=== PATIENT | female | born 1990 | race African-American/Black ===

== ENCOUNTER 2017-01-25 11:17 | Emergency (ER) | payer BC, MEDICAID ==
[~2017-01-25] VITALS: Ht 162.6 cm; Wt 65.8 kg
[~2017-01-25 11:17] MED LIST: ABILIFY
[2017-01-25 11:38] VITALS: BP 114/76
[2017-01-25 12:13] LABS: Urine Bilirubin Negative (Negative); Urine Blood Negative /uL (Negative); Urine Color Yellow (Yellow); Urine Glucose Normal (Normal); Urine Ketone Negative (Negative); Urine Mucus FEW (None Seen); Urine Nitrite Negative (Negative); Urine RBC <1 /hpf (0 - 4); Urine Squamous Epithelial Cell MOD /hpf (<5); Urine pH 5.5 (5.0-8.0)
== END 2017-01-25 13:29 | disposition home or self-care (01) ==
LOC: ER 11:17
DX: Z32.02 Encounter for pregnancy test, result negative (principal); Z88.8 Allergy status to other drugs, medicaments and biological substances; J45.909 Unspecified asthma, uncomplicated
CPT/HCPCS: 36415; 81001; 84702

== ENCOUNTER 2017-02-24 16:13 | Observation (INO) | payer MEDICAID ==
[~2017-02-24] VITALS: Ht 162.6 cm; Wt 63.5 kg
[2017-02-24 17:06] LABS: Basophils # (auto) 0.1 uL; Basophils % (auto) 1.3 % (0.0-2.0); Eosinophils # (auto) 0.3 uL; Eosinophils % (auto) 4.7 % (0.0-7.0); Hematocrit 39.7 % (36.0-46.0); Hemoglobin 13.3 g/dL (12.2-16.2); Lymphocytes # (auto) 2.2 uL; Lymphocytes % (auto) 37.7 % (10.0-50.0); Mean Corpuscular Hgb Conc. 33.4 g/dL (32.0-36.0); Mean Corpuscular Volume 95.8 fL (80.0-100.0); Mean Platelet Volume 8.3 fL (7.4-10.4); Monocytes # (auto) 0.4 uL; Neutrophils # (auto) 2.9 uL; Neutrophils % (auto) 49.3 % (37.0-80.0); Platelet Count (auto) 408 10^3/uL (140-450); Red Cell Distribution Width 13.2 % (11.6-16.0); White Blood Cell 5.8 10^3/uL (4.4-10.8)
[2017-02-24 17:25] LABS: Albumin 4.1 g/dL (3.4-5.0); Anion Gap 9 (5-15); Aspartate Aminotransferase 17 U/L (15-37); BUN/Creatinine Ratio 7.8; Blood Urea Nitrogen 7 mg/dL (7-18); Calcium 8.8 mg/dL (8.5-10.1); Carbon Dioxide 27 mmol/L (21-32); Chloride 105 mmol/L (98-107); GFR African American 97 mL/min; GFR Non-African American 80 mL/min; Glucose 91 mg/dL (74-106); Magnesium 2.1 mg/dL (1.6-2.6); Potassium 3.5 mmol/L (3.5-5.1); Salicylate < 1.7 mg/dL (2.8-20.0); Sodium 141 mmol/L (136-145)
[2017-02-24 17:28] LABS: Alkaline Phosphatase 55 U/L (45-117); Bilirubin, Total 0.5 mg/dL (0.2-1.0)
[2017-02-24 17:30] LABS: Acetaminophen < 2.0 ug/mL (10-30)
[2017-02-24 20:41] LABS: Urine Bilirubin Negative (Negative); Urine Blood Negative /uL (Negative); Urine Color Yellow (Yellow); Urine Glucose Normal (Normal); Urine Ketone Negative (Negative); Urine Mucus FEW (None Seen); Urine Nitrite Negative (Negative); Urine RBC 1 /hpf (0 - 4); Urine Squamous Epithelial Cell FEW /hpf (<5)
[2017-02-24] MEDS ORDERED: ACETAMINOPHEN 325 MG TAB PO ONE ×2 (21:45→22:00)
[2017-02-25 09:30] VITALS: BP 121/76
== END 2017-02-25 09:45 | disposition home or self-care (01) | DRG 812 ==
LOC: EDBD 16:13 → ER 16:28 → OVERFLOW 23:56 → ER 02-25 09:45
PROVIDERS: ADMIT Emergency Medicine; ATTEND Emergency Medicine
DX: T50.902A Poisoning by unspecified drugs, medicaments and biological substances, intentional self-harm, initial encounter (principal); F31.9 Bipolar disorder, unspecified; J45.909 Unspecified asthma, uncomplicated; Z82.49 Family history of ischemic heart disease and other diseases of the circulatory system; Z83.3 Family history of diabetes mellitus; Y92.89 Other specified places as the place of occurrence of the external cause
CPT/HCPCS: 36415; 80053; 80320; 80329; 81001; 83735; 84702; 85025; 99285; G0378; G0434

== ENCOUNTER → 2024-05-19 | Outpatient (CLI) | payer MEDICAID ==
[2024-05-19 10:42] LABS: Basophils # (auto) 0 10 ^3/uL (0-0.2); Basophils % (auto) 0.6 % (0.0-2.0); Eosinophils # (auto) 0.2 10 ^3/uL (0-0.8); Eosinophils % (auto) 3.8 % (0.0-7.0); Hemoglobin 12.6 g/dL (12.2-16.2); Lymphocytes # (auto) 2.4 10 ^3/uL (0.4-5.4); Lymphocytes % (auto) 36.3 % (10.0-50.0); Mean Corpuscular Hemoglobin 33.7 pg (28.0-32.0); Mean Corpuscular Volume 96.3 fL (80.0-100.0); Monocytes # (auto) 0.3 10 ^3/uL (0-1.3); Monocytes % (auto) 4.9 % (0.0-12.0); Neutrophils # (auto) 3.6 10 ^3/uL (1.6-8.6); Neutrophils % (auto) 54.4 % (37.0-80.0); Red Blood Cells 3.74 10^6/uL (4.0-5.20); Red Cell Distribution Width 12.5 % (11.8-14.3); White Blood Cell 6.6 10^3/uL (4.4-10.8)
[2024-05-19 11:43] LABS: Alanine Aminotransferase 16 U/L (7-40); Albumin 4.2 g/dL (3.2-4.8); Alkaline Phosphatase 55 U/L (46-116); Anion Gap 1 (5-15); Aspartate Aminotransferase 12 U/L (13-40); BUN/Creatinine Ratio 7.6 (10.0-20.0); Blood Urea Nitrogen 6 mg/dL (9-23); Calcium 9.3 mg/dL (8.7-10.4); Carbon Dioxide 28 mmol/L (20-30); Chloride 108 mmol/L (98-107); Glucose 94 mg/dL (74-106); Sodium 137 mmol/L (136-145)
[2024-05-19 11:44] LABS: Bilirubin, Total 0.2 mg/dL (0.2-1.0); Total Protein 7.2 g/dL (5.7-8.2)
[2024-05-20 11:06] LABS: AFP Serum Tumor Marker <1.8 ng/mL (0.0-6.4); Cancer Antigen (CA) 125 24.4 U/mL (0.0-38.1)
[2024-05-20 13:07] LABS: Chlamydia Trachomatis, NAA Negative (Negative); Neisseria gonorrhoeae, NAA Negative (Negative)
== END | disposition home or self-care (01) ==
LOC: LAB 10:15
PROVIDERS: ATTEND Obstetrics & Gynecology
DX: Z15.01 Genetic susceptibility to malignant neoplasm of breast (principal); Z80.8 Family history of malignant neoplasm of other organs or systems; Z84.81 Family history of carrier of genetic disease
CPT/HCPCS: 36415; 80053; 81025; 82105; 82378; 83615; 85025; 86304

== ENCOUNTER 2024-08-24 21:03 | Emergency (ER) | payer MEDICAID ==
[~2024-08-24] VITALS: Ht 162.6 cm; Wt 83.0 kg
[2024-08-24 22:27] LABS: Urine Bacteria None Seen /hpf (None Seen)
[2024-08-24 22:53] LABS: Urine Blood TRACE /uL (Negative); Urine Clarity Clear (Clear); Urine Color Light-Yellow (Yellow); Urine Protein, UAD Negative (Negative); Urine Specific Gravity 1.018 (1.001-1.035); Urine Urobilinogen Normal (Negative); Urine WBC 2 /hpf (0 - 5)
[2024-08-24 23:00] VITALS: BP 125/84; PULSE 76; RESP 19; TEMP 98.4; O2SAT 100
[2024-08-24] MEDS: KETOROLAC TROMETH 60MG/2ML VIAL IM ONE (23:06)
[2024-08-24] MEDS: ONDANSETRON ODT 4 MG TAB PO ONE (23:06)
[2024-08-24] MEDS: DexAMETHasone SOD PHOS 10MG/1ML VIAL INJ IM ONE (23:06)
[2024-08-25] MEDS: SUMAtriptan SUCCINATE 6 MG/0.5 ML VL SC ONE (00:11)
[2024-08-25] MEDS ORDERED: SUMA25TA2 PO (01:06)
== END 2024-08-25 01:10 | disposition home or self-care (01) ==
LOC: ER 21:03
DX: G43.909 Migraine, unspecified, not intractable, without status migrainosus (principal); R11.0 Nausea; R42 Dizziness and giddiness; F12.90 Cannabis use, unspecified, uncomplicated; J45.909 Unspecified asthma, uncomplicated; F32.A Depression, unspecified; Z86.69 Personal history of other diseases of the nervous system and sense organs
CPT/HCPCS: 81001; 96372; 99284; J1100; J1885; J3030; Q0162

== ENCOUNTER 2025-05-18 10:51 | Inpatient (IN) | payer MEDICAID ==
[~2025-05-18] VITALS: Ht 162.6 cm; Wt 82.2 kg
[~2025-05-18 10:51] MED LIST changes: +SUMA25TA2 PO
[2025-05-18] MEDS: ONDANSETRON HCL 4 MG/2 ML VIAL IV ONE (11:15)
[2025-05-18] MEDS: SODIUM CHLORIDE 0.9% 1,000 ML IVB ONE (11:15)
[2025-05-18] MEDS: MORPHINE SULFATE 4 MG/ML SYR/VIAL IV ONE (11:15)
--- NOTE | 2025-05-18 11:18 | ED.PDOC ---
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 Patient reports bleeding has worsened, described as dark and is expelling large blood clots. Patient also mentions suprapubic pain rating a 10/10 on the pain scale. Patient has similar episode back in August of 2024 when she was diagnosed with ovarian cysts and had her left ovary removed and her right ovary clamped. Patient Has a history of a tubal ligation and denies any possible alongside denies any fever, chills, or hematemesis. Patient admits to occasional use of marijuana and alcohol use. Chief Complaint: Vaginal Bleed Time Seen by MD: 11:10 Reviewed Notes: Nurses Notes, Medications, Allergies Allergies: Coded Allergies: Dicyclomine (Verified Allergy, Unknown, 01/25/17) Triamterene (Verified Allergy, Unknown, 01/25/17) Ziprasidone (Verified Allergy, Unknown, 01/25/17) Home Meds Active Scripts Sumatriptan Succinate (Sumatriptan Succinate) 25 Mg Tab, 25 MG PO ONCE PRN for 5 Days, #10 TAB Take 1 tablet by mouth at the sudden onset of migraine. Repeat 1 tab x1 1 hour after if migraine continues. 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, Ovarian Cysts Family History Family History: Family hx of DM Family History (Other): Mother has libra disease Social History Smoker: Non-Smoker Alcohol: Occasionally Drugs: Marijuana Lives In: Home Constitutional: denies: chills, diaphoresis, fatigue, fever, malaise, sweats, weakness, others EENTM: denies: blurred vision, double vision, ear bleeding, ear discharge, ear drainage, ear pain, ear ringing, eye pain, eye redness, hearing loss, mouth pain, mouth swelling, nasal discharge, nose bleeding, nose congestion, nose pain, photophobia, tearing, throat pain, throat swelling, voice changes, others Respiratory: denies: cough, hemoptysis, orthopnea, SOB at rest, shortness of breath, SOB with excertion, stridor, wheezing, others Cardiovascular: denies: chest pain, dizzy spells, diaphoresis, Dyspnea on exertion, edema, irregular heart beat, left arm pain, lightheadedness, palpitations, PND, syncope, others Gastrointestinal: reports: abdominal pain, nausea, vomiting; denies: abdomen distended, blood streaked bowels, constipated, diarrhea, dysphagia, difficulty swallowing, hematemesis, melena, poor appetite, poor fluid intake, rectal bleeding, rectal pain, others Genitourinary: reports: abnormal vagina bleeding, pain; denies: burning, dyspareunia, dysuria, flank pain, frequency, hematuria, incontinence, , vagina discharge, urgency, others Neurological: denies: dizziness, fainting, headache, left sided numbness, left sided weakness, numbness, paresthesia, pre-existing deficit, right sided numbness, right sided weakness, seizure, speech problems, tingling, tremors, weakness, others Musculoskeletal: denies: back pain, gout, joint pain, joint swelling, muscle pain, muscle stiffness, neck pain, others Integumetry: denies: bruises, change in color, change in hair/nails, dryness, laceration, lesions, lumps, rash, wounds, others Allergic/Immunocompromised: denies: Difficulty Healing, Frequent Infections, Hives, Itching, others Hematologic/Lymphatic: reports: blood clots; denies: anemia, easy bleeding, easy bruising, swollen glands, others Endocrine: denies: excessive hunger, excessive sweating, excessive thirst, e xcessive urination, flushing, intolerance to cold, intolerance to heat, unexplained weight gain, unexplained weight loss, others Psychiatric: denies: anxiety, bipolar disorder, depression, hopeless, panic disorder, schizophrenia, sleepless, suicidal, others All Other Systems: Reviewed and Negative Physical Exam General Appearance: Moderate Distress HEENT: Normal ENT Inspection, Pharynx Normal, TMs Normal Neck: Full Range of Motion, Non-Tender, Normal, Normal Inspection Respiratory: Chest Non-Tender, Lungs Clear, No Accessory Muscle Use, No Respiratory Distress, Normal Breath Sounds Cardiovascular: No Edema, No JVD, No Murmur, No Gallop, Normal Peripheral Pulses, Regular Rate/Rhythm Breast Exam: Deferred Gastrointestinal: LLQ, No Organomegaly, No Pulsatile Mass, Normal Bowel Sounds, Soft, Tenderness Genitalia: Deferred Pelvic: Deferred Rectal: Deferred Extremities: No calf tenderness, Normal capillary refill, Normal inspection, Normal range of motion, Non-tender, No pedal edema Musculoskeletal : Apperance: Normal Neurologic: Alert, batter scaler II-XII nml as Tested, No Motor Deficits, Normal Affect, Normal Mood, No Sensory Deficits Cerebellar Function: Normal Reflexes: Normal Skin: Dry, Normal Color, Warm Lymphatic: No Adenopathy Was a procedure done? Was a procedure done?: No Differential Diagnosis (WASHHOUSE WORKER) Vaginal Bleeding: Blood Loss Anemia, Cervicitis, Hormonal, Menorrhagia, Menometrorrhagia, Menstrual Bleeding, Myomatous Uterus, PID X-Ray, Labs, Meds, VS Vital Signs Date Time Temp Pulse Resp B/P (MAP) Pulse Ox O2 Delivery O2 Flow Rate FiO2 05/18/25 14:24 97.7 63 18 127/94 (105) 100 97.7 05/18/25 13:50 65 69 122/78 05/18/25 12:39 62 18 120/83 (95) 100 05/18/25 12:39 62 18 100 Room Air 05/18/25 11:15 62 18 120/83 05/18/25 11:05 98.5 74 16 126/91 (103) 99 98.5 Lab Test 05/18/25 11:20 05/18/25 11:12 Range/Units White Blood Count 5.6 4.4-10.8 10^3/uL Red Blood Count 4.17 4.0-5.20 10^6/uL Hemoglobin 13.7 12.2-16.2 g/dL Hematocrit 40.0 36.0-46.0 % Mean Corpuscular Volume 96.1 80.0-100.0 fL Mean Corpuscular Hemoglobin 32.9 H 28.0-32.0 pg Mean Corpuscular Hemoglobin Concent 34.3 32.0-36.0 g/dL Red Cell Distribution Width 12.8 11.8-14.3 % Platelet Count 332 140-450 10^3/uL Mean Platelet Volume 8.1 6.9-10.8 fL Neutrophils (%) (Auto) 46.9 37.0-80.0 % Lymphocytes (%) (Auto) 43.7 10.0-50.0 % Monocytes (%) (Auto) 5.1 0.0-12.0 % Eosinophils (%) (Auto) 3.3 0.0-7.0 % Basophils (%) (Auto) 1.0 0.0-2.0 % Neutrophils # (Auto) 2.6 1.6-8.6 10 ^3/uL Lymphocytes # (Auto) 2.4 0.4-5.4 10 ^3/uL Monocytes # (Auto) 0.3 0-1.3 10 ^3/uL Eosinophils # (Auto) 0.2 0-0.8 10 ^3/uL Basophils # (Auto) 0.1 0-0.2 10 ^3/uL Nucleated Red Blood Cells 0.1 % Sodium Level 141 136-145 mmol/L Potassium Level 3.9 3.5-5.1 mmol/L Chloride Level 107 98-107 mmol/L Carbon Dioxide Level 28 20-31 mmol/L Anion Gap 6 5-15 Blood Urea Nitrogen 8 L 9-23 mg/dL Creatinine 1.01 0.550-1.02 mg/dL Glomerular Filtration Rate Calc 75 >90 mL/min BUN/Creatinine Ratio 7.9 L 10.0-20.0 Serum Glucose 96 74-106 mg/dL Calcium Level 9.7 8.7-10.4 mg/dL Beta HCG, Quantitative 0.8 L 1.5-4.2 mIU/mL Urine Color Yellow Yellow Urine Clarity Turbid H Clear Urine pH 6.5 5.0-9.0 Urine Specific [place] 1.032 1.001-1.035 Urine Protein Trace H Negative Urine Ketones Negative Negative Urine Blood 2+ H Negative /uL Urine Nitrite Negative Negative Urine Bilirubin Negative Negative Urine Urobilinogen 2 H Negative mg/dL Urine Leukocyte Esterase Negative Negative /uL Urine RBC 2 0 - 4 /hpf Urine Microscopic WBC 4 0-5 /HPF Urine Squamous Epithelial Cells Mod <5 /hpf Urine Bacteria None seen None Seen /hpf Urine Mucus Few None Seen Urine Glucose Normal Normal mg/dL Current Medications Medications (Trade) Dose Ordered Sig/Trina Route Start Time Stop Time Status Last Admin Sodium Chloride 1,000 ml @ 1,000 mls/hr Q1H ONCE IVB 05/18/25 11:15 05/18/25 12:14 DC 05/18/25 11:15 Ondansetron HCl (Zofran) 4 mg ONCE ONCE IV 05/18/25 11:15 05/18/25 11:16 DC 05/18/25 11:15 Morphine Sulfate 4 mg ONCE ONCE IV 05/18/25 11:15 05/18/25 11:16 DC 05/18/25 11:15 IV Hep-Lock was established The patient was given 1 L bolus of normal saline The patient was given Zofran 4 mg IV push for the nausea The patient was given morphine 4 mg IV push for the pain. The urine test is negative for infection The quantitative hCG is negative The CBC and chemistry panel are within normal limits The patient's ultrasound of the pelvis shows:Impression: Intrauterine device is noted in place. The uterus is otherwise unremarkable. Irregularly-shaped anechoic structure adjacent to the left ovary which may represent bowel loop versus fluid within fallopian tube. A consult for OBGYN is being placed for the possible adnexal abnormality Images Reviewed?: Images reviewed and evaluated by me Time of 1ST Reevaluation: 11:13 Reevaluation 1ST: Unchanged Patient Education/Counseling: Diagnosis, Treatment, Prognosis Family Education/Counseling: No Family Present Departure 1 Departure Time of Disposition: 18:46 Impression: Primary Impression: Intractable abdominal pain Disposition: 09 ADMITTED INPATIENT Admit to: Med Surg Condition: Fair Critical Care Note Critical Care Time?: No Stability Stability form required: Yes Unstable for transfer: ED Physician Assesment (Clinical assesment) I personally scribed for YOGI ROBLES MD ([email or web address]) on 05/18/25 at 11:18. Electronically submitted by Ivelisse Stephen ([facility]). YOGI ROBLES MD May 18, 2025 11:18
[2025-05-18 11:40] LABS: Hematocrit 40.0 % (36.0-46.0); Hemoglobin 13.7 g/dL (12.2-16.2); Mean Corpuscular Hemoglobin 32.9 pg (28.0-32.0); Mean Corpuscular Volume 96.1 fL (80.0-100.0); Nucleated Red Blood Cells % 0.1 %
[2025-05-18 11:48] LABS: Chloride 107 mmol/L (98-107); Potassium 3.9 mmol/L (3.5-5.1); Sodium 141 mmol/L (136-145)
[2025-05-18 11:49] LABS: Anion Gap 6 (5-15); Calcium 9.7 mg/dL (8.7-10.4); Carbon Dioxide 28 mmol/L (20-31)
[2025-05-18 11:54] LABS: BUN/Creatinine Ratio 7.9 (10.0-20.0); Blood Urea Nitrogen 8 mg/dL (9-23); Glucose 96 mg/dL (74-106)
[2025-05-18 12:28] LABS: Urine Protein, UAD TRACE (Negative)
--- NOTE | 2025-05-18 15:52 | DVH ---
Procedure: US PELVIC Study Date and Requested Time: 05/18/2025 12:58 PM Study Description: US PELVIC History: pelvic pain Comparison: None Technique: Multiple transabdominal and transvaginal high resolution hoskins-scale images obtained of the uterus and adnexa with color Doppler for evaluation of adnexal blood flow and vascularity as indicat ed. Findings: Uterus measures 8 x 4.1 x 4.9 cm, with homogeneous echotexture. Endometrium within normal limits, raúl suring 0.3 cm in thickness with smooth contour. Cervix within normal limits. Intrauterine device is noted within endometrial canal. Right ovary measures 3.2 x 1.8 x 1.3 cm with normal color doppler flow. Left ovary measures 3 x 2.1 x 2.4 cm with a 1.2 cm dominant follicle and normal color doppler flow. Irregularly shaped anechoic structure adjacent to the left ovary which may represent bowel versus fal lopian tube. Trace amount of free fluid within the cul-de-sac which may be physiologic. Impression: Intrauterine device is noted in place. The uterus is otherwise unremarkable. Irregularly-shaped anechoic structure adjacent to the left ovary which may represent bowel loop versu s fluid within fallopian tube.
[2025-05-18] MEDS ORDERED: ACETAMINOPHEN 325 MG TAB PO PRN (17:45)
[2025-05-18] MEDS ORDERED: ONDANSETRON HCL 4 MG/2 ML VIAL IV PRN (17:45)
[2025-05-18] MEDS ORDERED: DOCUSATE SOD 100 MG CAP PO PRN (17:45)
[2025-05-18] MEDS ORDERED: MORPHINE SULFATE INJ 2 MG/ml SYRG IV PRN (19:00)
[2025-05-18] MEDS ORDERED: NITROGLYCERIN 0.4 MG SL TAB SL PRN (19:00)
--- NOTE | 2025-05-18 19:12 | DVHHP2 ---
History of Present Illness Reason for Visit: Vaginal bleed History of Present Illness The patient is a 34-year-old female with past medical history of asthma, depression, endometriosis, ovarian cysts, and seizures who presented to [facility] ED with complaint of heavy vaginal bleeding. Patient reports she has been experiencing heavy vaginal bleeding associated with clotting, nausea, vomiting, abdominal pain radiating to of suprapubic area, rating 10/10 numeric scale, getting worse that prompted this visit. Patient reports similar episode in August of 2024 when she was diagnosed with ovarian cysts and had her left ovary removed, her right ovary clamped. Patient was seen and evaluated in the E D, laboratory data shows WBC 5.6, hemoglobin 13.7, hematocrit 40.0, platelets 332, sodium 141, potassium 3.9, BUN 8, creatinine 0.01, glucose 96, calcium 9.7, hCG 0.8. Pelvic ultrasound revealing intrauterine device is noted in place, irregularity shaped anechoic adjacent to the left ovary which may represent bowel loops versus fluid within fallopian tube, the uterus is otherwise unremarkable. Patient was given morphine sulfate 4 mg IV x1, please see medication orders section in the computer. On my assessment, patient denied chest pain, no headache, no dizziness, no shortness of breath, no diarrhea, no abdominal pain, nausea or vomiting at this moment, no fever, no chills. Patient was admitted for further evaluation and medical management. Past Medical History Asthma, Depression, Seizures Gastroparesis, Endometriosis, Ovarian Cysts Past Surgical History Tubal Ligation Family History Reviewed, noncontributory to the management of this case. Past Social History The patient lives at home, denies smoking, drinks alcohol occasionally, uses marijuana. Review of Systems Constitutional: No: Fever, Chills, Sweats, Weakness, Malaise, Other Eyes: No: Pain, Vision change, Conjunctivae inflammation, Eyelid inflammation, Other, Redness ENT: No: Ear pain, Ear discharge, Nose pain, Nose discharge, Nose congestion, Mouth pain, Mouth swelling, Throat pain, Throat swelling, Other Respiratory: No: Cough, Dry, Shortness of breath, SOB with excertion, Wheezing, Hemoptysis, Pleuritic Pain, Sputum, Wheezing, Other Cardiovascular: No: Chest Pain, Palpitations, Orthopnea, Paroxysmal Noc. Dyspnea, Edema, Lt Headedness, Other Gastrointestinal: Nausea, Vomiting, Abdominal Pain; No: Diarrhea, Constipation, Melena, Hematochezia, Other Genitourinary: No Dysuria, No Frequency, No Incontinence, No Hematuria, No Retention; Other (Abdominal vagina bleeding, pain.) Musculoskeletal: No: other, neck pain, shoulder pain, arm pain, back pain, hand pain, leg pain, foot pain Skin: No: Rash, Lesions, Jaundice, Bruising, Other Neurological: No: Weakness, Numbness, Incoordination, Change in speech, Confusion, Seizures, Other Allergies: Coded Allergies: Dicyclomine (Verified Allergy, Unknown, 01/25/17) Triamterene (Verified Allergy, Unknown, 01/25/17) Ziprasidone (Verified Allergy, Unknown, 01/25/17) Medications Current Medications Medications Dose Ordered Sig/Trina Route Start Time Stop Time Status Last Admin Dose Admin Sodium Chloride 10 ml Q8HR IV 05/18/25 22:00 Acetaminophen/ Hydrocodone Bitart 1 tab Q4HP PRN PO 05/18/25 17:45 Ondansetron HCl 4 mg Q4HP PRN IV 05/18/25 17:45 Docusate Sodium 100 mg BIDPRN PRN PO 05/18/25 17:45 Acetaminophen 650 mg Q6HP PRN PO 05/18/25 17:45 Exam Vital Signs Vital Signs Date Time Temp Pulse Resp B/P (MAP) Pulse Ox O2 Delivery O2 Flow Rate FiO2 05/18/25 14:24 97.7 63 18 127/94 (105) 100 97.7 05/18/25 12:39 Room Air General Appearance: Alert, Oriented X3, Cooperative, No acute distress HEENT: Atraumatic, PERRLA, EOMI, Mucous membr. moist/pink Respiratory: Clear to auscultation, Normal air movement Cardiovascular: Regular rate, Normal S1, Normal S2, No murmurs, Gallops Abdominal: Normal bowel sounds, Soft, No hepatospenomegaly, No masses, Other (Reports tenderness) Extremities: No clubbing, No cyanosis, No edema, Normal pulses, No tenderness/swelling Skin: No rashes, No breakdown, No significant lesion Neuro: Normal gait, Normal speech, Strength at 5/5 X4 ext, Normal tone, Sensation intact, Cranial nerves 3-12 NL, Reflexes 2+ Psych/Mental Status: Mental status NL, Mood NL Labs/Xrays Labs Test 05/18/25 11:20 05/18/25 11:12 Range/Units White Blood Count 5.6 4.4-10.8 10^3/uL Red Blood Count 4.17 4.0-5.20 10^6/uL Hemoglobin 13.7 12.2-16.2 g/dL Hematocrit 40.0 36.0-46.0 % Mean Corpuscular Volume 96.1 80.0-100.0 fL Mean Corpuscular Hemoglobin 32.9 H 28.0-32.0 pg Mean Corpuscular Hemoglobin Concent 34.3 32.0-36.0 g/dL Red Cell Distribution Width 12.8 11.8-14.3 % Platelet Count 332 140-450 10^3/uL Mean Platelet Volume 8.1 6.9-10.8 fL Neutrophils (%) (Auto) 46.9 37.0-80.0 % Lymphocytes (%) (Auto) 43.7 10.0-50.0 % Monocytes (%) (Auto) 5.1 0.0-12.0 % Eosinophils (%) (Auto) 3.3 0.0-7.0 % Basophils (%) (Auto) 1.0 0.0-2.0 % Neutrophils # (Auto) 2.6 1.6-8.6 10 ^3/uL Lymphocytes # (Auto) 2.4 0.4-5.4 10 ^3/uL Monocytes # (Auto) 0.3 0-1.3 10 ^3/uL Eosinophils # (Auto) 0.2 0-0.8 10 ^3/uL Basophils # (Auto) 0.1 0-0.2 10 ^3/uL Nucleated Red Blood Cells 0.1 % Sodium Level 141 136-145 mmol/L Potassium Level 3.9 3.5-5.1 mmol/L Chloride Level 107 98-107 mmol/L Carbon Dioxide Level 28 20-31 mmol/L Anion Gap 6 5-15 Blood Urea Nitrogen 8 L 9-23 mg/dL Creatinine 1.01 0.550-1.02 mg/dL Glomerular Filtration Rate Calc 75 >90 mL/min BUN/Creatinine Ratio 7.9 L 10.0-20.0 Serum Glucose 96 74-106 mg/dL Calcium Level 9.7 8.7-10.4 mg/dL Beta HCG, Quantitative 0.8 L 1.5-4.2 mIU/mL Urine Color Yellow Yellow Urine Clarity Turbid H Clear Urine pH 6.5 5.0-9.0 Urine Specific [place] 1.032 1.001-1.035 Urine Protein Trace H Negative Urine Ketones Negative Negative Urine Blood 2+ H Negative /uL Urine Nitrite Negative Negative Urine Bilirubin Negative Negative Urine Urobilinogen 2 H Negative mg/dL Urine Leukocyte Esterase Negative Negative /uL Urine RBC 2 0 - 4 /hpf Urine Microscopic WBC 4 0-5 /HPF Urine Squamous Epithelial Cells Mod <5 /hpf Urine Bacteria None seen None Seen /hpf Urine Mucus Few None Seen Urine Glucose Normal Normal mg/dL PATIENT: KARL MACE SACCT: [id number] UNIT: [id number] : 1990 LOC: ER ROOM / BED: / AGE / SEX: 34 / F ADM STATUS: REG ER SERVICE 1112 ORDERING PHYSICIAN: YOGI ROBLES MD PROCEDURE(s): PELUS - PELVIC REASON: pelvic pain ORDER NUMBER(s): [id number], ACCESSION NUMBER(s): [id number] Procedure: US PELVIC Study Date and Requested Time: 05/18/2025 12:58 PM Study Description: US PELVIC History: pelvic pain Comparison: None Technique: Multiple transabdominal and transvaginal high resolution hoskins-scale images obtained of the uterus and adnexa with color Doppler for evaluation of adnexal blood flow and vascularity as indicated. Findings: Uterus measures 8 x 4.1 x 4.9 cm, with homogeneous echotexture. Endometrium within normal limits, measuring 0.3 cm in thickness with smooth contour. Cervix within normal limits. Intrauterine device is noted within endometrial canal. Right ovary measures 3.2 x 1.8 x 1.3 cm with normal color doppler flow. Left ovary measures 3 x 2.1 x 2.4 cm with a 1.2 cm dominant follicle and normal color doppler flow. Irregularly shaped anechoic structure adjacent to the left ovary which may represent bowel versus fallopian tube. Trace amount of free fluid within the cul-de-sac which may be physiologic. Impression: Intrauterine device is noted in place. The uterus is otherwise unremarkable. Irregularly-shaped anechoic structure adjacent to the left ovary which may represent bowel loop versus fluid within fallopian tube. Assessment/Plan Assessment/Plan Vaginal bleeding Abdominal pain Intractable nausea and vomiting Plan 1. Admit to telemetry unit 2. Breathing treatment 3. Pain control management 4. Management of fluids and electrolytes 5. Consultation for OBGYN 6. Diagnostic tests pelvic ultrasound 7. DVT prophylaxis-on SCDs 8. Repeat labs CBC, CMP in a.m. 9. Continue with current medical management 10. Treatment plan discussed with patient and RN. Patient verbalized understanding. Plan discussed with: Patient, Other (RN) My Orders Orders - MARIELLE DING DNP Procedure Category Date Status Time Allergies ANGELA 05/18/25 In Process 17:42 Code Status CODE 05/18/25 Transmitted 17:42 Sodium Chloride Lock PHA 05/18/25 In Process (Saline Lock Ns) 22:00 Oxygen Per Hour RT 05/18/25 Transmitted 17:42 Hydrocodone-Acet PHA 05/18/25 In Process 5/325mg Tab (Lamar 17:45 Ondansetron Hcl PHA 05/18/25 In Process (Zofran) 17:45 Docusate Sodium PHA 05/18/25 In Process Capsule (Colace 17:45 Complete Blood Count LAB 05/19/25 Verified 04:00 Comprehensive LAB 05/19/25 Verified Metabolic Panel 04:00 Cardiac DIET 05/18/25 Transmitted Diet-2gna,Lofat,Lochol Dinner Condition: Serious ANGELA 05/18/25 In Process 17:42 Acetaminophen Tablet PHA 05/18/25 In Process (Tylenol Tablet) 17:45 Bedrest With Bathroom ANGELA 05/18/25 In Process Privileg 17:42 Sequential ANGELA 05/18/25 In Process Compression Device Problem List: (1) Vaginal bleeding (2) Abdominal pain (3) Intractable nausea and vomiting Date of Service: May 18, 2025 Billing Provider: MARIELLE DING DNP Common Visit Codes: [id number] INP/OBS CARE (HIGH) MARIELLE DING DNP May 18, 2025 19:12
[2025-05-19] MEDS: SODIUM CHLOR 0.9% PF (SALINE LOCK) 10ML VIAL/SYR IV SCH (00:29)
[2025-05-19] MEDS: HYDROcodone-ACET 5/325MG TAB PO PRN (02:32)
[2025-05-19 04:13] LABS: Hematocrit 38.8 % (36.0-46.0); Hemoglobin 13.3 g/dL (12.2-16.2); Mean Corpuscular Hemoglobin 33.1 pg (28.0-32.0); Mean Corpuscular Volume 96.7 fL (80.0-100.0); Nucleated Red Blood Cells % 0.1 %
[2025-05-19 04:15] LABS: Alanine Aminotransferase 16 U/L (7-40); Albumin 4.4 g/dL (3.2-4.8); Alkaline Phosphatase 57 U/L (46-116); Anion Gap 9 (5-15); BUN/Creatinine Ratio 6.7 (10.0-20.0); Bilirubin, Total 0.5 mg/dL (0.2-1.0); Calcium 8.8 mg/dL (8.7-10.4); Carbon Dioxide 24 mmol/L (20-31); Chloride 106 mmol/L (98-107); Glucose 82 mg/dL (74-106); Potassium 3.7 mmol/L (3.5-5.1); Sodium 139 mmol/L (136-145); Total Protein 7.3 g/dL (5.7-8.2)
[2025-05-19 04:21] LABS: Blood Urea Nitrogen 6 mg/dL (9-23)
[2025-05-19 05:00] VITALS: BP 99/56; PULSE 105; RESP 14; TEMP 98.4; O2SAT 94
[2025-05-19 08:00] VITALS: PULSE 65; RESP 16; O2SAT 98
[2025-05-19 08:42] VITALS: BP 106/63; PULSE 65; RESP 16; TEMP 97.7; O2SAT 99
--- NOTE | 2025-05-19 12:43 | DVHPN2 ---
Progress Note Date Seen: May 19, 2025 Medical Necessity Reason Pt with a Central, PICC or Fol: No Subjective Patient reports: No new complaints Review of Systems: HEENT:Normal, CVS:Normal, RESPIRATORY:Normal, GI:Normal, :Normal, MSK:Normal, NEURO:Normal Objective vital signs Vital Sign Date Time Temp Pulse Resp B/P (MAP) Pulse Ox O2 Delivery O2 Flow Rate FiO2 05/19/25 08:42 97.7 65 16 106/63 (77) 99 97.7 05/19/25 02:36 Room Air medications Current Medications Medications Dose Ordered Sig/Trina Route Start Time Stop Time Status Last Admin Dose Admin Sodium Chloride 10 ml Q8HR IV 05/18/25 22:00 05/19/25 06:19 10 ML Acetaminophen/ Hydrocodone Bitart 1 tab Q4HP PRN PO 05/18/25 17:45 05/19/25 06:17 1 TAB Ondansetron HCl 4 mg Q4HP PRN IV 05/18/25 17:45 Docusate Sodium 100 mg BIDPRN PRN PO 05/18/25 17:45 Acetaminophen 650 mg Q6HP PRN PO 05/18/25 17:45 Nitroglycerin 0.4 mg Q5MINP PRN SL 05/18/25 19:00 Morphine Sulfate 2 mg Q30M PRN IV 05/18/25 19:00 Examination: GENERAL:Normal, HEENT:Normal, NECK:Normal, LUNGS:Normal, CVS:Normal, ABDOMEN:Normal, MSK:Normal, SKIN:Normal, NEURO:Normal, :Normal laboratory and microbiology Laboratory Tests 05/19/25 03:23 Test 05/19/25 03:23 Range/Units Serum Glucose 82 74-106 mg/dL Problem List/Assessment/Plan Problem List/Assessment/Plan #1 menorrhagia: per automatic tire tester #2 obesity #3 asthma #4 depression Plan discussed with: Patient My Orders My Orders Orders - ARLYN PÉREZ MD Procedure Category Date Status Time Complete Blood Count LAB 05/20/25 Verified 06:00 Date of Service: May 19, 2025 Billing Provider: ARLYN PÉREZ MD Common Visit Codes: [id number] INP/OBS CARE(HIGH) ARLYN PÉREZ MD May 19, 2025 12:43
[2025-05-19] MEDS: TRANEXAMIC ACID 1,000 MG in SODIUM CHL 0.9% 100 ML IV ONE (12:47)
[2025-05-19 13:58] VITALS: BP 103/65; PULSE 63; RESP 17; TEMP 98.3; O2SAT 98
--- NOTE | 2025-05-19 15:03 | DVHINCON2 ---
Date of service: May 19, 2025 Referring Physician hospitalist Reason for Consultation menorrhagia History of Present Illness pt is female admitted for menorrhagia and pelvic pain.pt has hx of aub ,ovarian cyst and endometriosis she has had multiple surgeries for ovarian cyst .pt has an iud in place .pelvic us is nl with suggestion of posible hydrosalpinx.pt is supposed to have hysterectomy with dr wilkes in [place] Past Medical History asthma,depression,seizures,endometriosis,ovarian cyst Past Surgical History tubal ligation,surgery for ovarian cyst Family History dm Social History one vag del Patient Family History: Patient reports no known family medical history. Allergies: Coded Allergies: Dicyclomine (Verified Allergy, Unknown, 01/25/17) Triamterene (Verified Allergy, Unknown, 01/25/17) Ziprasidone (Verified Allergy, Unknown, 01/25/17) Home Meds Active Scripts Sumatriptan Succinate (Sumatriptan Succinate) 25 Mg Tab, 25 MG PO ONCE PRN for 5 Days, #10 TAB Take 1 tablet by mouth at the sudden onset of migraine. Repeat 1 tab x1 1 hour after if migraine continues. Prov:NICOLLE FORD CEMENT WORKER 08/25/24 Reported Medications [Abilify] No Conflict Check 01/31/12 Current Medications Current Medications Medications (Trade) Dose Ordered Sig/Trina Route PRN Reason Start Time Stop Time Status Last Admin Sodium Chloride (Saline Lock Ns) 10 ml Q8HR IV 05/18/25 22:00 05/19/25 12:47 Acetaminophen/ Hydrocodone Bitart ([place] 5/325MG Tab) 1 tab Q4HP PRN PO MODERATE PAIN (4-6 PAIN SCALE) 05/18/25 17:45 05/19/25 13:50 Ondansetron HCl (Zofran) 4 mg Q4HP PRN IV NAUSEA / VOMITING 05/18/25 17:45 Docusate Sodium (Colace Capsule) 100 mg BIDPRN PRN PO FOR CONSTIPATION 05/18/25 17:45 Acetaminophen (Tylenol Tablet) 650 mg Q6HP PRN PO PAIN SCALE 1-3 OR TEMP>100.4 05/18/25 17:45 Nitroglycerin (Ntrostat Sublingual) 0.4 mg Q5MINP PRN SL FOR CHEST PAIN 05/18/25 19:00 Morphine Sulfate 2 mg Q30M PRN IV FOR CHEST PAIN 05/18/25 19:00 Review of Systems Constitutional: no fever, chill, weight loss HEENT: no eye pain, no hearing loss, no oral lesion, no scleral icterus Heart: no chest pain, no chest pressure Lung: no cough, no dyspnea with exertion Abdomen: see HPI : no pain with urination, normal appearing urine Musculoskeletal: no joint pain, no muscle pain Neurological: no seizure, no loss of sensation, no weakness in extremities Pysch: no depression, no anxiety Derm: no rash, no jaundice Vital Signs Vital Signs Date Time Temp Pulse Resp B/P (MAP) Pulse Ox O2 Delivery O2 Flow Rate FiO2 05/19/25 13:58 98.3 63 17 103/65 (78) 98 98.3 05/19/25 02:36 Room Air Physical Exam HEENT: [nl NECK: [nl] CARDIAC: [rrr] PULMONARY: [cta] ABDOMEN: [soft,nt] pelvic- vext genitalia wnl,vag nl,cx nl,uterus 8wks size,adenexa nl,nt Labs/Diagnostic Data Labs Test 05/19/25 03:23 05/18/25 11:20 05/18/25 11:12 Range/Units White Blood Count 7.7 # 4.4-10.8 10^3/uL Red Blood Count 4.01 4.0-5.20 10^6/uL Hemoglobin 13.3 12.2-16.2 g/dL Hematocrit 38.8 36.0-46.0 % Mean Corpuscular Volume 96.7 80.0-100.0 fL Mean Corpuscular Hemoglobin 33.1 H 28.0-32.0 pg Mean Corpuscular Hemoglobin Concent 34.2 32.0-36.0 g/dL Red Cell Distribution Width 12.6 11.8-14.3 % Platelet Count 296 140-450 10^3/uL Mean Platelet Volume 8.3 6.9-10.8 fL Neutrophils (%) (Auto) 47.5 37.0-80.0 % Lymphocytes (%) (Auto) 43.3 10.0-50.0 % Monocytes (%) (Auto) 4.9 0.0-12.0 % Eosinophils (%) (Auto) 3.6 0.0-7.0 % Basophils (%) (Auto) 0.7 0.0-2.0 % Neutrophils # (Auto) 3.7 1.6-8.6 10 ^3/uL Lymphocytes # (Auto) 3.3 0.4-5.4 10 ^3/uL Monocytes # (Auto) 0.4 0-1.3 10 ^3/uL Eosinophils # (Auto) 0.3 0-0.8 10 ^3/uL Basophils # (Auto) 0.1 0-0.2 10 ^3/uL Nucleated Red Blood Cells 0.1 % Sodium Level 139 136-145 mmol/L Potassium Level 3.7 3.5-5.1 mmol/L Chloride Level 106 98-107 mmol/L Carbon Dioxide Level 24 20-31 mmol/L Anion Gap 9 5-15 Blood Urea Nitrogen 6 L 9-23 mg/dL Creatinine 0.89 0.550-1.02 mg/dL Glomerular Filtration Rate Calc 87 >90 mL/min BUN/Creatinine Ratio 6.7 L 10.0-20.0 Serum Glucose 82 74-106 mg/dL Calcium Level 8.8 8.7-10.4 mg/dL Total Bilirubin 0.5 0.2-1.0 mg/dL Aspartate Amino Transferase (AST) 20 13-40 U/L Alanine Aminotransferase (ALT) 16 7-40 U/L Alkaline Phosphatase 57 46-116 U/L Total Protein 7.3 5.7-8.2 g/dL Albumin 4.4 3.2-4.8 g/dL Beta HCG, Quantitative 0.8 L 1.5-4.2 mIU/mL Urine Color Yellow Yellow Urine Clarity Turbid H Clear Urine pH 6.5 5.0-9.0 Urine Specific [place] 1.032 1.001-1.035 Urine Protein Trace H Negative Urine Ketones Negative Negative Urine Blood 2+ H Negative /uL Urine Nitrite Negative Negative Urine Bilirubin Negative Negative Urine Urobilinogen 2 H Negative mg/dL Urine Leukocyte Esterase Negative Negative /uL Urine RBC 2 0 - 4 /hpf Urine Microscopic WBC 4 0-5 /HPF Urine Squamous Epithelial Cells Mod <5 /hpf Urine Bacteria None seen None Seen /hpf Urine Mucus Few None Seen Urine Glucose Normal Normal mg/dL Primary Diagnosis aub iud posible left hydrosalpinx 2' Diagnosis/Comorbidities hx of adenomyosis and endometriosis Plan txa for pain and bleeding 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
[2025-05-19 17:00] VITALS: BP 99/61; PULSE 74; RESP 16; TEMP 98; O2SAT 99
[2025-05-19 20:57] VITALS: BP 107/72; PULSE 62; RESP 18; TEMP 98.1; O2SAT 99
[2025-05-20 01:00] VITALS: BP 104/70; PULSE 98; RESP 16; TEMP 97.7; O2SAT 99
[2025-05-20 05:00] VITALS: BP 118/77; PULSE 72; RESP 18; TEMP 97; O2SAT 99
[2025-05-20 08:00] VITALS: PULSE 58
[2025-05-20 08:34] VITALS: BP 106/74; PULSE 65; RESP 18; TEMP 97.7; O2SAT 100
--- NOTE | 2025-05-20 11:19 | DVHDS2 ---
Discharge Summary Date of Admission May 18, 2025 at 18:50 Date of Discharge: May 20, 2025 Labs/Diagnostic Data: Laboratory Results Test 05/20/25 06:38 05/19/25 03:23 05/18/25 11:20 05/18/25 11:12 Eosinophils (%) (Auto) 3.6 % (0.0-7.0) Eosinophils # (Auto) 0.3 10 ^3/uL (0-0.8) Basophils # (Auto) 0.1 10 ^3/uL (0-0.2) Nucleated Red Blood Cells 0.1 % Sodium Level 139 mmol/L (136-145) Potassium Level 3.7 mmol/L (3.5-5.1) Chloride Level 106 mmol/L (98-107) Carbon Dioxide Level 24 mmol/L (20-31) Anion Gap 9 (5-15) Blood Urea Nitrogen 6 mg/dL (9-23) Creatinine 0.89 mg/dL (0.550-1.02) Glomerular Filtration Rate Calc 87 mL/min (>90) BUN/Creatinine Ratio 6.7 (10.0-20.0) Serum Glucose 82 mg/dL (74-106) Calcium Level 8.8 mg/dL (8.7-10.4) Total Bilirubin 0.5 mg/dL (0.2-1.0) Aspartate Amino Transferase (AST) 20 U/L (13-40) Alanine Aminotransferase (ALT) 16 U/L (7-40) Alkaline Phosphatase 57 U/L (46-116) Total Protein 7.3 g/dL (5.7-8.2) Albumin 4.4 g/dL (3.2-4.8) Beta HCG, Quantitative 0.8 mIU/mL (1.5-4.2) Urine Color Yellow (Yellow) Urine Clarity Turbid (Clear) Urine pH 6.5 (5.0-9.0) Urine Specific [place] 1.032 (1.001-1.035) Urine Protein Trace (Negative) Urine Ketones Negative (Negative) Urine Blood 2+ /uL (Negative) Urine Nitrite Negative (Negative) Urine Bilirubin Negative (Negative) Urine Urobilinogen 2 mg/dL (Negative) Urine Leukocyte Esterase Negative /uL (Negative) Urine RBC 2 /hpf (0 - 4) Urine Microscopic WBC 4 /HPF (0-5) Urine Squamous Epithelial Cells Mod /hpf (<5) Urine Bacteria None seen /hpf (None Seen) Urine Mucus Few (None Seen) Urine Glucose Normal mg/dL (Normal) Other Laboratory Tests 05/19/25 03:23 Brief Hx & Hospital Course: see dictated note Condition at Discharge: Good Final Diagnosis/Problems List menorrhagia Discharge Disposition: Home Discharge Instruct/Medications Diet: Regular Activity: No Restrictions, As Tolerated Follow Up/Referral: fu with pcp/corporation pilot Medications: script to pharmacy Scheduled PRN Sumatriptan Succinate (Sumatriptan Succinate), 25 MG PO ONCE PRN Discontinued Medications [Abilify], (Reported) Discharge Statement: "Patient was advised to return to the ER or call 911 if any headaches, dizziness, shortness of breath, chest pain, abdominal pain, bleeding, fevers, or worsening of medical condition. Patient was counseled about treatment plan, medications, possible side effects, patientverbalized understanding. All questions were answered to the best of my ability. This discharge took greater then 30 minutes in planning, reviewing documentation, counseling the patient, and discussing with other team members." ASSESSMENT ASSESSMENT Assessment menorrhagia Date of Service: May 20, 2025 Billing Provider: ARLYN PÉREZ MD Common Visit Codes: 10574-MQR/OBS DISCH DAY >30min ARLYN PÉREZ MD May 20, 2025 11:19
[2025-05-20] MEDS ORDERED: HYDR1TAB97 PO (11:21)
[2025-05-20] MEDS ORDERED: FER325T PO (11:21)
--- NOTE | 2025-05-20 11:32 | DVHDS ---
HISTORY OF PRESENT ILLNESS: The patient is a 34-year-old lady who is admitted with a history of menorrhagia and has history of asthma and depression. HOSPITAL COURSE: The patient had a pelvic ultrasound that showed evidence of intrauterine device with anechoic structure adjacent to the left ovary. She was seen in [facility] consult by Dr. Pierson. The patient was given intravenous tranexamic acid. She is currently having no more menorrhagia and will be discharged home to be on [place] p.r.n. for pain and iron sulfate 325 mg b.i.d. She will follow up with her OB and primary care. FINAL DIAGNOSES: * Menorrhagia with likely dysfunctional uterine bleeding. * Obesity. * Asthma. * Depression. Time spent in discharge planning and review of plan with the patient and nursing was 37 minutes. MD GOPAL Rangel/KAROL TID: [id number] RECEIPT: [id number]
[2025-05-20 12:30] VITALS: BP 98/67; PULSE 69; RESP 17; TEMP 98.4; O2SAT 95
== END 2025-05-20 12:50 | disposition home or self-care (01) | DRG 532 ==
LOC: ER 10:51 → OVERFLOW 18:50 → TELE-WESTW 05-19 22:25
PROVIDERS: ADMIT Internal Medicine; ATTEND Internal Medicine
DX: N92.0 Excessive and frequent menstruation with regular cycle (principal); N80.9 Endometriosis, unspecified; E66.9 Obesity, unspecified; N93.8 Other specified abnormal uterine and vaginal bleeding; Z68.31 Body mass index [BMI] 31.0-31.9, adult; F32.A Depression, unspecified; J45.909 Unspecified asthma, uncomplicated; K31.84 Gastroparesis; Z97.5 Presence of (intrauterine) contraceptive device; Z90.721 Acquired absence of ovaries, unilateral; Z83.3 Family history of diabetes mellitus; Z88.8 Allergy status to other drugs, medicaments and biological substances
CPT/HCPCS: 36415; 76830; 76856; 80048; 80053; 81001; 84702; 85025; 96374; 96375; G0378; J2405

== ENCOUNTER 2025-07-20 16:09 | Emergency (ER) | payer MEDICAID ==
[~2025-07-20] VITALS: Ht 162.6 cm; Wt 82.1 kg
[~2025-07-20 16:09] MED LIST changes: -ABILIFY; +FER325T PO; +HYDR1TAB97 PO
[2025-07-20 16:12] VITALS: BP 123/96; PULSE 103; RESP 16; TEMP 98.2; O2SAT 99
--- NOTE | 2025-07-20 16:47 | ED.PDOC ---
GI ASSESSMENT HPI Comments 34y F who presents to the ED for chief complaint of dehydration. Pt states she has history of eating disorder and states over the past 2 weeks, she has been restricting her p.o. intake of both solids and liquids and now feels she is likely dehydrated. Pt states she is currently having nausea and vomiting, but denies self-induced vomiting or abdominal pain. Pt states yesterday, she started to have palpitations and became concerned her potassium may be low and came to the ED for further evaluation. Pt states she recently moved to the [facility] and states she has been having difficulty finding a psychiatrist/ therapist. Denies SI/HI, auditory or visual hallucinations. Pt has noted heart rate of 103 in the ED, with noted BP of 123/96 with otherwise stable vitals including rr 16, temp of 98.2 F and 02 sat of 99% on room air. Pt otherwise denies any other symptoms at this time. Chief Complaint: Nausea/Vomiting Time Seen by MD: 16:58 Primary Care Provider: DENIES Reviewed Notes: Medications, Allergies Allergies: Coded Allergies: Dicyclomine (Verified Allergy, Unknown, 01/25/17) Triamterene (Verified Allergy, Unknown, 01/25/17) Ziprasidone (Verified Allergy, Unknown, 01/25/17) Home Meds Active Scripts Ferrous Sulfate (FERROUS SULFATE) 325 Mg Tb, 1 TAB PO BID PRN for 30 Days, #60 TAB 3 Refills Prov:ARLYN PÉREZ MD 05/20/25 Hydrocodone-Acetaminophen (Hydrocodone/Acetaminophen 5-325 mg) 1 Tab Tab, 1 TAB PO TIDP PRN for 5 Days, #15 TAB Prov:ARLYN PÉREZ MD 05/20/25 Sumatriptan Succinate (Sumatriptan Succinate) 25 Mg Tab, 25 MG PO ONCE PRN for 5 Days, #10 TAB Take 1 tablet by mouth at the sudden onset of migraine. Repeat 1 tab x1 1 hour after if migraine continues. Prov:NICOLLE FORD 08/25/24 Information Source: Patient Mode of Arrival: Ambulatory Past Medical History PAST MEDICAL HISTORY: Asthma, Depression, Seizures Past Medical History (Other): Meniere's disease, Eating disorder, bipolar, gastroparesis Surgical History: Hysterectomy, Tubal Ligation BRACELET FORMER History: Endometriosis, Ovarian Cysts Family History Family History: Family hx of DM Family History (Other): Mother has libar disease Social History Smoker: Non-Smoker Alcohol: Occasionally Drugs: Marijuana Lives In: Home All Other Systems: Reviewed and Negative (see HPI) Physical Exam General Appearance: No Apparent Distress HEENT: Other (Pupils and face symmetric. Dry mucous membranes) Neck: Full Range of Motion, Normal Inspection Respiratory: Lungs Clear, No Accessory Muscle Use, No Respiratory Distress, Normal Breath Sounds Cardiovascular: No Edema, No JVD, Regular Rate/Rhythm Breast Exam: Deferred Gastrointestinal: Non Tender, Soft Genitalia: Deferred Pelvic: Deferred Rectal: Deferred Extremities: Normal inspection, Normal range of motion, Non-tender, No pedal edema Neurologic: Alert (Oriented x4), Normal Affect, Other (Appears depressed and anxious. Ambulatory.) Cerebellar Function: NOT DONE Reflexes: NOT DONE Skin: Dry, Normal Color, Warm Lymphatic: NOT DONE Was a procedure done? Was a procedure done?: No GI differential Dx Differential Diagnosis: UTI, Dehydration, Electrolyte Imbalance, , Hypovolemia, Malnutrition, Anemia, Stress Ulcer X-Ray, Labs, Meds, VS Vital Signs Date Time Temp Pulse Resp B/P (MAP) Pulse Ox O2 Delivery O2 Flow Rate FiO2 07/20/25 16:12 98.2 103 16 123/96 99 98.2 Lab Test 07/20/25 18:06 07/20/25 17:17 Range/Units Urine Color Yellow Yellow Urine Clarity Turbid H Clear Urine pH 5.5 5.0-9.0 Urine Specific [place] 1.029 1.001-1.035 Urine Protein Trace H Negative Urine Ketones 1+ H Negative Urine Blood Trace H Negative /uL Urine Nitrite Negative Negative Urine Bilirubin Negative Negative Urine Urobilinogen Normal Negative mg/dL Urine Leukocyte Esterase Negative Negative /uL Urine RBC 1 0 - 4 /hpf Urine Microscopic WBC 3 0-5 /HPF Urine Squamous Epithelial Cells Mod <5 /hpf Urine Bacteria None seen None Seen /hpf Urine Mucus Few None Seen Urine Yeast (Budding) Occasional None Seen /hpf Urine Glucose Normal Normal mg/dL Urine Opiates Screen Neg NEGATIVE Urine Fentanyl Screen Neg NEGATIVE Urine Barbiturates Screen Neg NEGATIVE Urine Phencyclidine Screen Neg NEGATIVE Urine Amphetamines Screen Neg NEGATIVE Urine Benzodiazepines Screen Neg NEGATIVE Urine Cocaine Screen Neg NEGATIVE Urine Cannabinoids Screen Pos NEGATIVE White Blood Count 6.8 4.4-10.8 10^3/uL Red Blood Count 3.91 L 4.0-5.20 10^6/uL Hemoglobin 13.3 12.2-16.2 g/dL Hematocrit 36.8 36.0-46.0 % Mean Corpuscular Volume 94.1 80.0-100.0 fL Mean Corpuscular Hemoglobin 34.0 H 28.0-32.0 pg Mean Corpuscular Hemoglobin Concent 36.1 H 32.0-36.0 g/dL Red Cell Distribution Width 12.7 11.8-14.3 % Platelet Count 344 140-450 10^3/uL Mean Platelet Volume 8.2 6.9-10.8 fL Neutrophils (%) (Auto) 58.4 37.0-80.0 % Lymphocytes (%) (Auto) 33.1 10.0-50.0 % Monocytes (%) (Auto) 4.7 0.0-12.0 % Eosinophils (%) (Auto) 3.0 0.0-7.0 % Basophils (%) (Auto) 0.8 0.0-2.0 % Neutrophils # (Auto) 4.0 1.6-8.6 10 ^3/uL Lymphocytes # (Auto) 2.2 0.4-5.4 10 ^3/uL Monocytes # (Auto) 0.3 0-1.3 10 ^3/uL Eosinophils # (Auto) 0.2 0-0.8 10 ^3/uL Basophils # (Auto) 0.1 0-0.2 10 ^3/uL Nucleated Red Blood Cells 0.1 % Sodium Level 141 136-145 mmol/L Potassium Level 3.3 L 3.5-5.1 mmol/L Chloride Level 104 98-107 mmol/L Carbon Dioxide Level 27 20-31 mmol/L Anion Gap 10 5-15 Blood Urea Nitrogen 7 L 9-23 mg/dL Creatinine 0.91 0.550-1.02 mg/dL Glomerular Filtration Rate Calc 85 >90 mL/min BUN/Creatinine Ratio 7.7 L 10.0-20.0 Serum Glucose 82 74-106 mg/dL Calcium Level 9.1 8.7-10.4 mg/dL Total Bilirubin 0.6 0.2-1.0 mg/dL Aspartate Amino Transferase (AST) 20 13-40 U/L Alanine Aminotransferase (ALT) 19 7-40 U/L Alkaline Phosphatase 65 46-116 U/L Total Protein 7.8 5.7-8.2 g/dL Albumin 4.4 3.2-4.8 g/dL Salicylates Level < 3.0 -30 mg/dL Acetaminophen Level < 2.0 L 10.0-20.0 UG/ML Plasma/Serum Blood Alcohol < 3.0 <10 mg/dL X-Ray, Labs, Meds, VS Comment 44-year-old female with a history of eating disorder and gastroparesis comp laining of dehydration due to intentional p.o. intake restriction related to her eating disorder. Vitals remarkable for heart rate 103, BP 123/96 Exam remarkable for dry mucous membranes, appears anxious and tearful Rhythm strip independently interpreted by me: Sinus tach, rate 103, no ectopy. CBC unremarkable, basic metabolic panel remarkable for potassium 3.3, UA abnormal consistent with volume contraction and/or contaminated specimen, urine drug screen positive for cannabinoids, Tylenol and salicylate unremarkable Patient treated with the following in the ED: 2 L 0.9 normal saline IV bolus, effervescent potassium 50 mEq p.o. Patient is currently medically cleared for tele psych evaluation. Disposition will be per tele psych recommendations. Anticipate patient will be dischargeable. Patient endorsed to the overnight ED physician pending tele psych evaluation. Time of 1ST Reevaluation: 20:28 Reevaluation 1ST: Improved Patient Education/Counseling: Diagnosis, Treatment Family Education/Counseling: No Family Present SEPSIS Sepsis Screen Date sepsis recognized/suspect: Jul 20, 2025 Time Sepsis recognized/suspect: 1613 Recent Procedure: No On Antibiotic Therapy: No Respiratory Rate >20: No Heart Rate >90: Yes Temp<36 C (96.8 F) or >38.3 C: No SBP <90 or MAP <65 mmHG: No New Acute Mental Status Change: No Is the patient on CPAP, BIPAP,: No SEPSIS EXCLUSION NOTE: Sepsis Exclusion Note: Patient presents with SIRS criteria, but the SIRS response is attributed to [hypovolemia, anxiety ], not a suspected infection. Sepsis bundle is not initiated at this time, due to this reason. Further management will focus on the treatment of the above condition (s). Physician Orders Electrocardigram (07/20/25 16:47) Potassium Effervesent Tab (Klor-Con/Ef) (07/20/25 20:15) Vital Signs Date Time Temp Pulse Resp B/P (MAP) Pulse Ox O2 Delivery O2 Flow Rate FiO2 07/20/25 16:12 98.2 103 16 123/96 99 98.2 Laboratory Tests Test 07/20/25 17:17 White Blood Count 6.8 10^3/uL (4.4-10.8) Departure 1 Departure Time of Disposition: 22:00 Impression: Primary Impression: Dehydration Additional Impressions: Hypokalemia Eating disorder Qualified Codes: F50.9 - Eating disorder, unspecified Disposition: 30 STILL A PATIENT Condition: Fair Critical Care Note Critical Care Time?: No Stability Stability form required: No Heart Score Heart Score: Heart Score Response (Comments) Value History N/A 0 EKG N/A 0 Age N/A 0 Risk Factors N/A 0 Troponin N/A 0 Total 0 I personally scribed for MAMADOU SHOOK MD ([facility]) on 07/20/25 at 16:47. Electronically submitted by Mina Salazar ([facility]). I personally scribed for MAMADOU SHOOK MD ([facility]) on 07/20/25 at 17 :01. Electronically submitted by Mina Salazar ([facility]). MAMADOU SHOOK MD Jul 20, 2025 16:47
[2025-07-20] MEDS ORDERED: SODIUM CHLORIDE 0.9% 2,000 ML IV ONE (17:00)
[2025-07-20 17:54] LABS: Hematocrit 36.8 % (36.0-46.0); Hemoglobin 13.3 g/dL (12.2-16.2); Mean Corpuscular Hemoglobin 34.0 pg (28.0-32.0); Mean Corpuscular Volume 94.1 fL (80.0-100.0); Nucleated Red Blood Cells % 0.1 %
[2025-07-20 18:10] LABS: Alanine Aminotransferase 19 U/L (7-40); Albumin 4.4 g/dL (3.2-4.8); Alkaline Phosphatase 65 U/L (46-116); Anion Gap 10 (5-15); BUN/Creatinine Ratio 7.7 (10.0-20.0); Calcium 9.1 mg/dL (8.7-10.4); Carbon Dioxide 27 mmol/L (20-31); Chloride 104 mmol/L (98-107); Glucose 82 mg/dL (74-106); Sodium 141 mmol/L (136-145); Total Protein 7.8 g/dL (5.7-8.2)
[2025-07-20 18:11] LABS: Bilirubin, Total 0.6 mg/dL (0.2-1.0)
[2025-07-20 18:12] LABS: Blood Urea Nitrogen 7 mg/dL (9-23); Potassium 3.3 mmol/L (3.5-5.1)
[2025-07-20 18:18] LABS: Urine Budding Yeast OCCASIONAL /hpf (None Seen); Urine Protein, UAD TRACE (Negative)
[2025-07-20 18:20] LABS: Acetaminophen < 2.0 UG/ML (10.0-20.0); Salicylate < 3.0 mg/dL (-30)
[2025-07-20 18:30] LABS: Cannabinoid Screen, Urine Pos (NEGATIVE)
[2025-07-20 18:37] LABS: Amphetamine Screen, Urine Neg (NEGATIVE); Barbiturate Scree,Urine Neg (NEGATIVE); Benzodiazephine Screen, Urine Neg (NEGATIVE); Cocaine Screen, Urine Neg (NEGATIVE); Opiate Scree,Urine Neg (NEGATIVE); Phencyclidine Screen, Urine Neg (NEGATIVE)
[2025-07-20] MEDS ORDERED: POTASSIUM EFFERVESENT TAB 25 MEQ PO ONE (20:15)
== END 2025-07-21 03:39 | disposition left against medical advice (07) ==
LOC: ER 16:09
DX: E86.0 Dehydration (principal); E87.6 Hypokalemia; F50.9 Eating disorder, unspecified; F31.9 Bipolar disorder, unspecified; J45.909 Unspecified asthma, uncomplicated; Z86.59 Personal history of other mental and behavioral disorders; Z90.710 Acquired absence of both cervix and uterus
CPT/HCPCS: 36415; 80053; 80307; 80320; 80329; 81001; 85025

== ENCOUNTER 2025-10-03 09:26 | Emergency (ER) | payer MEDICAID ==
[~2025-10-03] VITALS: Ht 162.6 cm; Wt 84.4 kg
[2025-10-03] MEDS ORDERED: KETOROLAC TROMETH 30 MG/ML 1ML VIAL ONE (11:12)
[2025-10-03] MEDS ORDERED: ONDANSETRON ODT 4 MG TAB ONE (11:13)
[2025-10-03] MEDS ORDERED: ACETAMINOPHEN 325 MG TAB PO ONE (11:13)
--- NOTE | 2025-10-03 11:27 | ED.PDOC ---
General HPI Comments 35-year-old female presents to the ED for chief complaint of left flank/back pain radiating to her abdomen that started two weeks ago. Patient describes pain as sharp, constant, and has a alleviating factors. Patient reports additional symptoms of increased urinary frequency but denies any dysuria, hematuria, chills, or fever. Patient does mention having a hysterectomy in May 2025 however still has an ovary. She denies any nausea, vomiting, diarrhea, or rectal bleeding. Chief Complaint: Flank Pain Time Seen by MD: 10:18 Primary Care Provider: DENIES Reviewed notes: Nurses Notes, Medications, Allergies Allergies: Coded Allergies: Dicyclomine (Verified Allergy, Unknown, 01/25/17) Triamterene (Verified Allergy, Unknown, 01/25/17) Ziprasidone (Verified Allergy, Unknown, 01/25/17) Home Meds Active Scripts Ferrous Sulfate (FERROUS SULFATE) 325 Mg Tb, 1 TAB PO BID PRN for 30 Days, #60 TAB 3 Refills Prov:ARLYN PÉREZ MD 05/20/25 Hydrocodone-Acetaminophen (Hydrocodone/Acetaminophen 5-325 mg) 1 Tab Tab, 1 TAB PO TIDP PRN for 5 Days, #15 TAB Prov:ARLYN PÉREZ MD 05/20/25 Sumatriptan Succinate (Sumatriptan Succinate) 25 Mg Tab, 25 MG PO ONCE PRN for 5 Days, #10 TAB Take 1 tablet by mouth at the sudden onset of migraine. Repeat 1 tab x1 1 hour after if migraine continues. 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 HAND History: Endometriosis, Ovarian Cysts Family History Family History: Family hx of DM Family History (Other): Mother has libra disease Social History Smoker: Non-Smoker Alcohol: Occasionally Drugs: Marijuana Lives In: Home Constitutional: denies: chills, diaphoresis, fatigue, fever, malaise, sweats, weakness, others EENTM: denies: blurred vision, double vision, ear bleeding, ear discharge, ear drainage, ear pain, ear ringing, eye pain, eye redness, hearing loss, mouth pain, mouth swelling, nasal discharge, nose bleeding, nose congestion, nose pain, photophobia, tearing, throat pain, throat swelling, voice changes, others Respiratory: denies: cough, hemoptysis, orthopnea, SOB at rest, shortness of breath, SOB with excertion, stridor, wheezing, others Cardiovascular: denies: chest pain, dizzy spells, diaphoresis, Dyspnea on exertion, edema, irregular heart beat, left arm pain, lightheadedness, palpitations, PND, syncope, others Gastrointestinal: denies: abdomen distended, abdominal pain, blood streaked bowels, constipated, diarrhea, dysphagia, difficulty swallowing, hematemesis, melena, nausea, poor appetite, poor fluid intake, rectal bleeding, rectal pain, vomiting, others Genitourinary: reports: flank pain, frequency; denies: abnormal vagina bleeding, burning, dyspareunia, dysuria, hematuria, incontinence, pain, , vagina discharge, urgency, others Neurological: denies: dizziness, fainting, headache, left sided numbness, left sided weakness, numbness, paresthesia, pre-existing deficit, right sided numbness, right sided weakness, seizure, speech problems, tingling, tremors, weakness, others Musculoskeletal: reports: back pain; denies: gout, joint pain, joint swelling, muscle pain, muscle stiffness, neck pain, others Integumetry: denies: bruises, change in color, change in hair/nails, dryness, laceration, lesions, lumps, rash, wounds, others Allergic/Immunocompromised: denies: Difficulty Healing, Frequent Infections, Hives, Itching, others Hematologic/Lymphatic: denies: anemia, blood clots, easy bleeding, easy bruising, swollen glands, others Endocrine: denies: excessive hunger, excessive sweating, excessive thirst, excessive urination, flushing, intolerance to cold, intolerance to heat, unexplained weight gain, unexplained weight loss, others Psychiatric: denies: anxiety, bipolar disorder, depression, hopeless, panic disorder, schizophrenia, sleepless, suicidal, others All Other Systems: Reviewed and Negative Physical Exam General Appearance: Moderate Distress HEENT: Normal ENT Inspection, Pharynx Normal, TMs Normal Neck: Full Range of Motion, Non-Tender, Normal, Normal Inspection Respiratory: Chest Non-Tender, Lungs Clear, No Accessory Muscle Use, No Respiratory Distress, Normal Breath Sounds Cardiovascular: No Edema, No JVD, No Murmur, No Gallop, Normal Peripheral Pulses, Regular Rate/Rhythm Breast Exam: Deferred Gastrointestinal: No Organomegaly, Non Tender, No Pulsatile Mass, Normal Bowel Sounds, Soft Genitalia: Deferred Pelvic: Deferred Rectal: Deferred Extremities: No calf tenderness, Normal capillary refill, Normal inspection, Normal range of motion, Non-tender, No pedal edema Musculoskeletal : Location: Left Extremity Location: Back Apperance: Tenderness: Moderate Neurologic: Alert, gold tooler II-XII nml as Tested, No Motor Deficits, Normal Affect, Normal Mood, No Sensory Deficits Cerebellar Function: Normal Reflexes: Normal Skin: Dry, Normal Color, Warm Lymphatic: No Adenopathy Was a procedure done? Was a procedure done?: No Differential Diagnosis Kidney stone (Female): Hepatitis, HNP, Musculoskeletal pain, Ovarian torsion, Pancreatitis, Pyelonephritis, Strain Urinary Problem (Female): PID, Pyelonephritis, Urolithiasis, UTI, Vaginitis X-Ray, Labs, Meds, VS Vital Signs Date Time Temp Pulse Resp B/P (MAP) Pulse Ox O2 Delivery O2 Flow Rate FiO2 10/03/25 11:36 98.6 71 16 131/91 (104) 100 98.6 10/03/25 11:36 71 16 100 Room Air 10/03/25 09:30 98.1 88 18 125/79 100 98.1 Lab Test 10/03/25 11:15 10/03/25 09:47 Range/Units White Blood Count 8.2 4.4-10.8 10^3/uL Red Blood Count 3.98 L 4.0-5.20 10^6/uL Hemoglobin 13.0 12.2-16.2 g/dL Hematocrit 37.9 36.0-46.0 % Mean Corpuscular Volume 95.2 80.0-100.0 fL Mean Corpuscular Hemoglobin 32.7 H 28.0-32.0 pg Mean Corpuscular Hemoglobin Concent 34.3 32.0-36.0 g/dL Red Cell Distribution Width 12.8 11.8-14.3 % Platelet Count 336 140-450 10^3/uL Mean Platelet Volume 8.4 6.9-10.8 fL Neutrophils (%) (Auto) 64.5 37.0-80.0 % Lymphocytes (%) (Auto) 26.8 10.0-50.0 % Monocytes (%) (Auto) 5.2 0.0-12.0 % Eosinophils (%) (Auto) 2.7 0.0-7.0 % Basophils (%) (Auto) 0.8 0.0-2.0 % Neutrophils # (Auto) 5.3 1.6-8.6 10 ^3/uL Lymphocytes # (Auto) 2.2 0.4-5.4 10 ^3/uL Monocytes # (Auto) 0.4 0-1.3 10 ^3/uL Eosinophils # (Auto) 0.2 0-0.8 10 ^3/uL Basophils # (Auto) 0.1 0-0.2 10 ^3/uL Nucleated Red Blood Cells 0.1 % Sodium Level 144 136-145 mmol/L Potassium Level 3.9 3.5-5.1 mmol/L Chloride Level 105 98-107 mmol/L Carbon Dioxide Level 29 20-31 mmol/L Anion Gap 10 5-15 Blood Urea Nitrogen 7 L 9-23 mg/dL Creatinine 0.94 0.550-1.02 mg/dL Glomerular Filtration Rate Calc 81 >90 mL/min BUN/Creatinine Ratio 7.4 L 10.0-20.0 Serum Glucose 90 74-106 mg/dL Calcium Level 9.4 8.7-10.4 mg/dL Urine Color Yellow Yellow Urine Clarity Turbid H Clear Urine pH 6.0 5.0-9.0 Urine Specific [place] 1.022 1.001-1.035 Urine Protein Negative Negative Urine Ketones Negative Negative Urine Blood Negative Negative /uL Urine Nitrite Negative Negative Urine Bilirubin Negative Negative Urine Urobilinogen Normal Negative mg/dL Urine Leukocyte Esterase Trace Negative /uL Urine RBC 1 0 - 4 /hpf Urine Microscopic WBC 4 0-5 /HPF Urine Squamous Epithelial Cells Mod <5 /hpf Urine Bacteria None seen None Seen /hpf Urine Mucus Few None Seen Urine Glucose Normal Normal mg/dL Current Medications Medications (Trade) Dose Ordered Sig/Trina Route Start Time Stop Time Status Last Admin Ondansetron HCl (Zofran Po) 4 mg ONCE ONCE PO 10/03/25 11:15 10/03/25 11:16 DC 10/03/25 11:29 Ketorolac Tromethamine (Toradol Injection) 15 mg ONCE ONCE IM 10/03/25 11:15 10/03/25 11:16 DC 10/03/25 11:28 Time of 1ST Reevaluation: 11:36 Reevaluation 1ST: Unchanged Patient Education/Counseling: Diagnosis, Treatment, Prognosis Family Education/Counseling: No Family Present SEPSIS Sepsis Screen Date sepsis recognized/suspect: Oct 03, 2025 Time Sepsis recognized/suspect: 929 Recent Procedure: No On Antibiotic Therapy: No Respiratory Rate >20: No Heart Rate >90: No Temp<36 C (96.8 F) or >38.3 C: No SBP <90 or MAP <65 mmHG: No New Acute Mental Status Change: No Is the patient on CPAP, BIPAP,: No Vital Signs Date Time Temp Pulse Resp B/P (MAP) Pulse Ox O2 Delivery O2 Flow Rate FiO2 10/03/25 11:36 98.6 71 16 131/91 (104) 100 98.6 10/03/25 11:36 71 16 100 Room Air 10/03/25 09:30 98.1 88 18 125/79 100 98.1 Laboratory Tests Test 10/03/25 11:15 White Blood Count 8.2 10^3/uL (4.4-10.8) Medications Medications Dose Ordered Sig/Trina Route Start Time Stop Time Status Last Admin Dose Admin Ketorolac Tromethamine 15 mg ONCE ONCE IM 10/03/25 11:15 10/03/25 11:16 DC 10/03/25 11:28 Ondansetron HCl 4 mg ONCE ONCE PO 10/03/25 11:15 10/03/25 11:16 DC 10/03/25 11:29 Departure 1 Departure Time of Disposition: 14:55 (Patient's workup is benign. Including normal labs normal UA. Patient is feeling better and like to go home. We will discharge patient home with outpatient follow up) Impression: Primary Impression: Flank pain Disposition: 01 HOME / SELF CARE / HOMELESS Condition: Stable Additional Instructions: Your workup today was benign. Including normal labs and normal urine. You were prescribed pain medication. Please take as directed. If your symptoms worsen or if any other concerns please return to the emergency room e-Prescriptions Hydrocodone-Acetaminophen (Hydrocodone Bitartrate/AC 5-325 mg) 1 Tab Tab 1 TAB PO QID PRN for 4 Days, #16 TAB Prov: ARNOLDO SAMANO MD 10/03/25 Discharged With: Self Critical Care Note Critical Care Time?: No Stability Stability form required: No Heart Score Heart Score: Heart Score Response (Comments) Value History N/A 0 EKG N/A 0 Age N/A 0 Risk Factors N/A 0 Troponin N/A 0 Total 0 I personally scribed for ARNOLDO SAMANO MD ([email or web address]) on 10/03/25 at 11:38. Elect ronically submitted by Ivelisse Stephen ([facility]). ARNOLDO SAMANO MD Oct 03, 2025 11:27
[2025-10-03] MEDS: KETOROLAC TROMETH 30 MG/ML 1ML VIAL IM ONE (11:28)
[2025-10-03] MEDS: ONDANSETRON ODT 4 MG TAB PO ONE (11:29)
[2025-10-03] MEDS: ACETAMINOPHEN 325 MG TAB PO ONE (11:29)
[2025-10-03 11:36] VITALS: BP 131/91; PULSE 71; RESP 16; TEMP 98.6; O2SAT 100
[2025-10-03 11:49] LABS: Hematocrit 37.9 % (36.0-46.0); Hemoglobin 13.0 g/dL (12.2-16.2); Mean Corpuscular Hemoglobin 32.7 pg (28.0-32.0); Mean Corpuscular Volume 95.2 fL (80.0-100.0); Nucleated Red Blood Cells % 0.1 %
[2025-10-03 12:08] LABS: Chloride 105 mmol/L (98-107); Potassium 3.9 mmol/L (3.5-5.1); Sodium 144 mmol/L (136-145)
[2025-10-03 12:09] LABS: Anion Gap 10 (5-15); Carbon Dioxide 29 mmol/L (20-31)
[2025-10-03 12:10] LABS: Calcium 9.4 mg/dL (8.7-10.4)
[2025-10-03 12:14] LABS: BUN/Creatinine Ratio 7.4 (10.0-20.0); Glucose 90 mg/dL (74-106)
[2025-10-03 12:16] LABS: Blood Urea Nitrogen 7 mg/dL (9-23)
[2025-10-03 13:39] LABS: Urine Protein, UAD Negative (Negative)
[2025-10-03] MEDS ORDERED: HYDR-4902 PO (14:56)
== END 2025-10-03 15:06 | disposition home or self-care (01) ==
LOC: ER 09:30
DX: R10.9 Unspecified abdominal pain (principal); J45.909 Unspecified asthma, uncomplicated; Z90.710 Acquired absence of both cervix and uterus; Z79.899 Other long term (current) drug therapy
CPT/HCPCS: 36415; 80048; 81001; 85025; 96372; 99283; J1885; Q0162